=== PATIENT | male | born 1995 | race Hispanic/Latino ===

== ENCOUNTER 2018-05-31 13:19 | Emergency (ER) | payer SELFPAY ==
[2018-05-31 13:19] VITALS: BP 131/78; PULSE 66; RESP 14; TEMP 36.1; O2SAT 97; BMI 23.4
--- NOTE | 2018-05-31 14:13 | ED.VISSUMM ---
- ER Visit Summary Date of Service: 05/31/18 Chief Complaint: Left hand laceration History of Present Illness: The patient is a 22 M who was sharpening a knife around 1130 this morning and cut his left hand. He is right-hand dominant. He denies paresthesias or weakness. He is unsure of his last tetanus update. Physical Examination: Vital signs unremarkable. Left upper extremity examination is significant for 2.5 cm laceration of the left hand near the base of the left thumb. He has full range of motion of all digits. Has normal sensation and cap refill distally. Test Results: [] Emergency Department Course and Treatment: Wound is anesthetized with 1 cc 1% lidocaine. Wound is irrigated. Skin is closed with 3 simple interrupted sutures of 5-0 nylon. Tetanus update will be provided. Patient is to have sutures removed in 1 week. Treatment Plan: [] Disposition: Discharge Impression: Left hand laceration status post suture This note was generated with [employer] dictation software. It may contain incorrect words, spelling, and punctuation that were not noted in review of the chart prior to signing ED Disposition - Plan for ED Patient: Chief Complaint: Laceration
--- NOTE | 2018-05-31 14:14 | ED.DEP ---
ED Disposition - Plan for ED Patient: Disposition: Home or Assisted Living Chief Complaint: Laceration Instructions: ED Laceration Hand Referrals: Giorgio,Valery, [NON-STAFF] - 7 Days for suture removal
[2018-05-31] MEDS: Diphth,Pertuss(Acell),Tet Vac 0.5 ML Vial IM (14:23)
== END 2018-05-31 15:50 | disposition home or self-care (01) ==
LOC: ED 14:26
PROVIDERS: Emergency Provider Emergency Medicine
DX: S61.412A Laceration without foreign body of left hand, initial encounter (principal); W26.0XXA Contact with knife, initial encounter
CPT/HCPCS: 12001; 90471; 90715; 99284